=== PATIENT | male | born 1960 | race African-American/Black ===

== ENCOUNTER 2018-09-30 06:35 | Emergency (ER) | payer MEDICARE, MEDICAID ==
[~2018-09-30] VITALS: Ht 175.3 cm; Wt 90.9 kg
[~2018-09-30 06:35] MED LIST: ATEN25TA PO; HYDR25TA PO; MINOXIDIL; VALS40TA4 PO
[2018-09-30] MEDS ORDERED: IBUPROFEN 800 MG TABLET PO ONE (07:00)
[2018-09-30 08:58] VITALS: BP 124/82
== END 2018-09-30 08:59 | disposition home or self-care (01) ==
LOC: EMS 06:36
DX: S96.912A Strain of unspecified muscle and tendon at ankle and foot level, left foot, initial encounter (principal); J45.909 Unspecified asthma, uncomplicated; I10 Essential (primary) hypertension; Z79.899 Other long term (current) drug therapy; X58.XXXA Exposure to other specified factors, initial encounter; Y93.89 Activity, other specified; Y92.89 Other specified places as the place of occurrence of the external cause; Y99.8 Other external cause status
CPT/HCPCS: 29515

== ENCOUNTER 2018-11-20 05:11 | Emergency (ER) | payer MEDICARE, MEDICAID ==
[~2018-11-20] VITALS: Ht 177.8 cm; Wt 100.0 kg
[2018-11-20] MEDS ORDERED: VALS320T17 PO (05:21)
[2018-11-20] MEDS ORDERED: ATEN50TA PO (05:21)
[2018-11-20] MEDS ORDERED: MINO10 PO (05:21)
[2018-11-20 08:36] VITALS: BP 125/76
== END 2018-11-20 08:44 | disposition home or self-care (01) ==
LOC: EMS 05:13
DX: M19.041 Primary osteoarthritis, right hand (principal); I10 Essential (primary) hypertension; J45.909 Unspecified asthma, uncomplicated; Z79.899 Other long term (current) drug therapy

== ENCOUNTER 2020-08-26 10:55 | Emergency (ER) | payer OTHER, MEDICARE, MEDICAID ==
[~2020-08-26] VITALS: Ht 182.9 cm; Wt 99.1 kg
[~2020-08-26 10:55] MED LIST changes: +ATEN-72 PO; -ATEN25TA PO; +MINO10 PO; -MINOXIDIL; +VALS320T17 PO; -VALS40TA4 PO
[2020-08-26] MEDS ORDERED: CHLO25TA3 PO (11:41)
[2020-08-26] MEDS ORDERED: LIDOCAINE 5% TRANSDERMAL PATCH TD ONE (11:45)
[2020-08-26 12:59] VITALS: BP 106/63
== END 2020-08-26 13:19 | disposition home or self-care (01) ==
LOC: EMS 10:56
DX: M25.511 Pain in right shoulder (principal); M54.2 Cervicalgia; J45.909 Unspecified asthma, uncomplicated; I10 Essential (primary) hypertension; V49.9XXA Car occupant (driver) (passenger) injured in unspecified traffic accident, initial encounter; Y93.89 Activity, other specified; Y92.89 Other specified places as the place of occurrence of the external cause; Y99.8 Other external cause status
CPT/HCPCS: 72052; 73030-TC; Z7502; Z7610

== ENCOUNTER 2022-12-21 05:28 | Emergency (ER) | payer MEDICARE, MEDICAID ==
[~2022-12-21] VITALS: Ht 177.8 cm; Wt 95.5 kg
[~2022-12-21 05:28] MED LIST changes: +CHLO25TA3 PO; -HYDR25TA PO
[2022-12-21] MEDS ORDERED: ACETAMINOPHEN 500 MG TABLET PO ONE (06:30)
[2022-12-21 07:01] VITALS: BP 156/96
== END 2022-12-21 08:12 | disposition home or self-care (01) ==
LOC: EMS 05:29
DX: S76.111A Strain of right quadriceps muscle, fascia and tendon, initial encounter (principal); I10 Essential (primary) hypertension; J45.909 Unspecified asthma, uncomplicated; X58.XXXA Exposure to other specified factors, initial encounter; Y93.89 Activity, other specified; Y92.89 Other specified places as the place of occurrence of the external cause; Y99.8 Other external cause status
CPT/HCPCS: 99283

== ENCOUNTER 2023-09-03 06:25 | Emergency (ER) | payer OTHER ==
[~2023-09-03] VITALS: Ht 177.8 cm; Wt 95.5 kg
[2023-09-03 06:27] VITALS: BP 156/93; PULSE 73; RESP 18; TEMP 98.2
[2023-09-03] MEDS ORDERED: ACETAMINOPHEN 500 MG TABLET PO ONE (08:00)
== END 2023-09-03 08:51 | disposition home or self-care (01) ==
LOC: EMS 06:26
DX: M25.561 Pain in right knee (principal); J45.909 Unspecified asthma, uncomplicated; I10 Essential (primary) hypertension; Z98.890 Other specified postprocedural states
CPT/HCPCS: 99283

== ENCOUNTER 2024-10-04 07:09 | Emergency (ER) | payer MEDICARE, MEDICAID ==
[~2024-10-04] VITALS: Ht 177.8 cm; Wt 86.4 kg
[2024-10-04 07:26] VITALS: TEMP 98.9
[2024-10-04] MEDS ORDERED: FURO40TA6 PO (07:28)
[2024-10-04] MEDS ORDERED: ATOR20TA65 PO (07:28)
[2024-10-04] MEDS ORDERED: ALLO100T PO (07:28)
[2024-10-04] MEDS ORDERED: COLC-3 PO ×2 (07:28→10:08)
[2024-10-04] MEDS: COLCHICINE 0.6 MG TABLET PO ONE (08:33)
[2024-10-04] MEDS: HYDROCODONE/ACETAMINOPHEN 5-325 MG TABLET PO ONE (08:34)
[2024-10-04 08:38] LABS: BASOPHILS % (AUTO) 0.2 % (0.0-2.0); EOSINOPHILS % (AUTO) 0.2 % (1.0-6.0); HEMATOCRIT 38.8 % (41-53); LYMPHOCYTES # (AUTO) 1.6 K/uL (1.0-4.8); LYMPHOCYTES % (AUTO) 30.5 % (22.0-44.0); MEAN CORPUSCULAR HEMOGLOBIN 28.3 pg (26.0-34.0); MEAN CORPUSCULAR HGB CONC 33.5 G/dL (31.0-37.0); MEAN CORPUSCULAR VOLUME 84 fL (80-100); MONOCYTES # (AUTO) 0.4 K/uL (0.1-1.0); NEUTROPHILS # (AUTO) 3.1 K/uL (1.8-7.7); NEUTROPHILS % (AUTO) 61.1 % (40.0-70.0); PLATELET COUNT (AUTO) 179 K/uL (150-450); WHITE BLOOD COUNT (AUTO) 5.1 K/uL (4.5-11.0)
[2024-10-04 08:43] LABS: ANION GAP 0 mmol/L (8-16); CALCIUM, TOTAL 8.4 mg/dL (8.8-10.5); CARBON DIOXIDE 31 mmol/L (22-29); CHLORIDE 103 mmol/L (98-107); CREATININE 1.47 mg/dL (0.60-1.30); GLOMERULAR FILTR. RATE CALC 59 mL/min (>60); GLUCOSE,RANDOM 95 mg/dL (70-110); POTASSIUM 3.3 mmol/L (3.5-5.1); SODIUM SERUM 134 mmol/L (136-145); UREA NITROGEN, BLOOD 25 mg/dL (7-18)
[2024-10-04] MEDS: INDOMETHACIN 50 MG CAPSULE PO ONE (08:46)
[2024-10-04 09:43] VITALS: BP 136/89; PULSE 72; RESP 16; O2SAT 99
[2024-10-04] MEDS: POTASSIUM CHLORIDE 20 MEQ ER TABLET PO ONE (09:57)
[2024-10-04] MEDS ORDERED: HYDR-4062 PO (10:08)
[2024-10-04] MEDS ORDERED: IBUP-1554 PO (10:08)
== END 2024-10-04 10:20 | disposition home or self-care (01) ==
LOC: EMS 07:09
DX: M25.572 Pain in left ankle and joints of left foot (principal); M10.9 Gout, unspecified; E87.6 Hypokalemia; I10 Essential (primary) hypertension; J45.909 Unspecified asthma, uncomplicated; Z86.73 Personal history of transient ischemic attack (TIA), and cerebral infarction without residual deficits; Z79.899 Other long term (current) drug therapy
CPT/HCPCS: 80048; 84550; 85025; 99284